=== PATIENT | male | born 1955 | race Caucasian/White ===

== ENCOUNTER 2020-07-09 18:59 | Inpatient (IN) | payer MEDICARE, OTHER ==
[2020-07-09] MEDS ORDERED: NORMAL SALINE 1000 ML 1,000 ML IV ONE (19:13)
[2020-07-09] MEDS ORDERED: ONDANSETRON HCL INJ/PF 4 MG/2 ML SDV IV ONE (19:16)
--- NOTE | 2020-07-09 19:18 | ER Document Report ---
ED Medical Screen (RME) - General Chief Complaint: Shortness Of Breath Stated Complaint: SHORTNESS OF BREATH Time Seen by Provider: 07/09/20 19:06 Primary Care Provider: TITA MIKE [Primary Care Provider] - Follow up as needed Notes: Patient is a 64-year-old male who presents the emergency department with a chief complaint of shortness of breath. Patient states that for the past couple weeks, he has not been feeling well. States that he has had on and off fevers. Patient was tested for COVID-19 yesterday. He was given Zofran. States that he continues to feel nauseous. Denies a history of atrial fibrillation. He did not take his medicine today, because he states he did not feel well. Exam: Sinus tachycardia with heart rate in the 130s. I have greeted and performed a rapid initial assessment of this patient. A comprehensive ED assessment and evaluation of the patient, analysis of test results and completion of medical decision making process will be conducted by an additional ED providers. TRAVEL OUTSIDE OF THE [place] IN LAST 30 DAYS: No - Related Data Allergies/Adverse Reactions: Penicillins Allergy (Verified 09/29/13 09:36) Past Medical History - Past Medical History Cardiac Medical History: Reports: Hx Coronary Artery Disease, Hx Hypertension Denies: Hx Heart Attack Pulmonary Medical History: Denies: Hx Asthma, Hx Bronchitis, Hx COPD, Hx Pneumonia Neurological Medical History: Denies: Hx Cerebrovascular Accident, Hx Seizures GI Medical History: Denies: Hx Hepatitis, Hx Hiatal Hernia, Hx Ulcer Musculoskeltal Medical History: Denies Hx Arthritis Infectious Medical History: Denies: Hx Hepatitis Past Surgical History: Denies: Hx Open Heart Surgery, Hx Pacemaker - Immunizations Hx Diphtheria, Pertussis, Tetanus Vaccination: Yes Course - Laboratory Result Diagrams: 07/09/20 14:02 07/09/20 14:02 Doctor's Discharge - Discharge Referrals: TITA MIKE [Primary Care Provider] - Follow up as needed
[2020-07-09 19:24] LABS: ABSOLUTE LYMPHOCYTES (AUTO) 0.8 10^3/uL (0.5-4.7); ABSOLUTE MONOCYTES (AUTO) 0.6 10^3/uL (0.1-1.4); ABSOLUTE NEUT (AUTO) 5.1 10^3/uL (1.7-8.2); BASOPHILS % (AUTO) 0.2 % (0-2); HEMATOCRIT 38.9 % (37.9-51.0); HEMOGLOBIN 13.6 g/dL (13.5-17.0); LYMPHOCYTES % (AUTO) 12.3 % (13-45); MEAN CORPUSCULAR HEMOGLOBIN 30.3 pg (27.0-33.4); MEAN CORPUSCULAR VOLUME 87 fl (80-97); MONOCYTES % (AUTO) 9.8 % (3-13); PLATELET COUNT 273 10^3/uL (150-450); RED BLOOD COUNT 4.48 10^6/uL (4.35-5.55); RED CELL DISTRIBUTION WIDTH 13.3 % (11.5-14.0); SEGMENTED NEUTROPHILS % (AUTO) 77.7 % (42-78); TOTAL CELLS COUNTED % (AUTO) 100 %; WHITE BLOOD COUNT 6.6 10^3/uL (4.0-10.5)
[2020-07-09 19:42] LABS: ALKALINE PHOSPHATASE 59 U/L (38-126); ANION GAP 19 (5-19); ASPARTATE AMINO TRANSFERASE 23 U/L (17-59); BILIRUBIN,DIRECT 0.4 mg/dL (0.0-0.4); BILIRUBIN,TOTAL 0.4 mg/dL (0.2-1.3); BLOOD UREA NITROGEN 72 mg/dL (7-20); CALCIUM 9.2 mg/dL (8.4-10.2); CHLORIDE 107 mmol/L (98-107); GLUCOSE 155 mg/dL (75-110); POTASSIUM 5.2 mmol/L (3.6-5.0); TOTAL PROTEIN 7.2 g/dL (6.3-8.2)
[2020-07-09 19:55] LABS: CARBON DIOXIDE 10 mmol/L (22-30)
--- NOTE | 2020-07-09 19:56 | RADIOLOGY REPORT (SQ) ---
EXAM DESCRIPTION: CHEST SINGLE VIEW IMAGES COMPLETED DATE/TIME: 07/09/2020 6:40 pm REASON FOR STUDY: shortness of breath, PUI. COMPARISON: None. EXAM PARAMETERS: NUMBER OF VIEWS: One view. TECHNIQUE: Single frontal radiographic view of the chest acquired. RADIATION DOSE: NA LIMITATIONS: None. FINDINGS: LUNGS AND PLEURA: Lungs are hyperinflated. Ill-defined patchy opacity in the left mid to lower lung peripherally may represent infectious/inflammatory process. No pleural effusion or pneumo thorax. MEDIASTINUM AND HILAR STRUCTURES: No masses. Contour normal. HEART AND VASCULAR STRUCTURES: Heart normal in size. Normal vasculature. BONES: No acute findings. HARDWARE: None in the chest. OTHER: No other significant finding. IMPRESSION: Peripheral ill-defined opacity in the left mid lung may represent infectious/ inflammato ry process. Underlying pulmonary nodule is not excluded. Further evaluation with contrast-enhanced CT of the chest is recommended. TECHNICAL DOCUMENTATION: JOB ID: [id number] [employer]- All Rights Reserved Reading location - IP/workstation name: [email or web address]
[2020-07-09] MEDS ORDERED: CEFEPIME INJ 1 GM VIAL IM ONE (20:32)
[2020-07-09] MEDS ORDERED: NORMAL SALINE IV ONE (20:35)
[2020-07-09 20:48] LABS: INTERNATIONAL RATION (INR) 1.08; PROTHROMBIN TIME 14.2 SEC (11.4-15.4)
[2020-07-09 20:53] LABS: A TYPE INFLUENZA AG NEGATIVE (NEGATIVE); B INFLUENZA AG NEGATIVE (NEGATIVE)
--- NOTE | 2020-07-09 21:11 | ER Document Report ---
ED General - General Chief Complaint: Shortness Of Breath Stated Complaint: SHORTNESS OF BREATH Time Seen by Provider: 07/09/20 19:06 Primary Care Provider: TITA MIKE [NO LOCAL MD] - Follow up as needed TRAVEL OUTSIDE OF THE [place] IN LAST 30 DAYS: No - HPI Onset/Duration: Constant Quality of pain: No pain Severity: Severe Pain Level: Denies Context: This is a 64-year-old male with a history of diabetes, hypertension, ex-smoker for 30 to 40 years who presents by EMS for shortness of breath and fever for the past 2 weeks. Patient states that he is not on home O2. Patient states that he has generally not felt well and decided to go through a drive-through testing center yesterday to be checked for Covid, results of which are pending at this time. Patient states his symptoms got significantly worse today and he decided to call EMS. When EMS arrived patient was complaining of nausea. He was given Zofran in route. Patient had a temp of 103.0 at home which he took Tylenol for at 1850 hrs. Patient's initial vital signs on scene: Temperature 98.5, blood pressure 110/62, pulse ox 96 to 98% on room air, heart rate 140 respiratory rate 20 and fingerstick blood sugars 147. Patient is not complaining of pain but states that his fatigue and shortness of breath are severe. Patient states symptoms are worsened with exacerbation and are very slightly relieved with r est. Patient states his has been sick at home with respiratory symptoms as well. Patient denies history of prior Covid infection, loss of sense of taste or smell, known exposure to Covid positive persons or persons under investigation for COVID-19. Associated symptoms: Other - See HPI Exacerbated by: Other - See HPI Relieved by: Other - See HPI - Related Data Allergies/Adverse Reactions: Penicillins Allergy (Verified 09/29/13 09:36) Home Medications: Potassium, metformin, atarvastatin, ASA, cardizem, chlorathalidone, lisinopril, omeprazole, zofran. Past Medical History - General Information source: Patient, Emergency Med Personnel - Social History Smoking Status: Former Smoker Drug Abuse: None Family History: Reviewed & Not Pertinent Patient has homicidal ideation: No - Past Medical History Cardiac Medical History: Reports: Hx Coronary Artery Disease, Hx Hypertension Denies: Hx Heart Attack Pulmonary Medical History: Denies: Hx Asthma, Hx Bronchitis, Hx COPD, Hx Pneumonia Neurological Medical History: Denies: Hx Cerebrovascular Accident, Hx Seizures GI Medical History: Denies: Hx Hepatitis, Hx Hiatal Hernia, Hx Ulcer Musculoskeletal Medical History: Denies Hx Arthritis Infectious Medical History: Denies: Hx Hepatitis Past Surgical History: Denies: Hx Open Heart Surgery, Hx Pacemaker - Immunizations Hx Diphtheria, Pertussis, Tetanus Vaccination: Yes Review of Systems - Review of Systems Constitutional: See HPI, Fever, Weakness EENT: No symptoms reported Cardiovascular: No symptoms reported Respiratory: Short of breath Gastrointestinal: No symptoms reported Genitourinary: No symptoms reported Male Genitourinary: No symptoms reported Musculoskeletal: No symptoms reported Skin: No symptoms reported Hematologic/Lymphatic: No symptoms reported Neurological/Psychological: No symptoms reported -: Yes All other systems reviewed and negative Physical Exam - Vital signs Vitals: Resp Pulse Ox 18 96 07/09/20 19:03 07/09/20 19:03 - Notes Notes: CONSTITUTIONAL [Vital signs reviewed, Patient appears fatigued but does not appear to be in acute distress, Alert and oriented X 3, Normal stature.] HEAD [Atraumatic, Normocephalic.] EYES [Eyes are normal to inspection, No discharge from eyes, Extraocular muscles intact, Sclera are normal, Conjunctiva are normal.] NECK [Normal ROM, No jugular venous distention, No meningeal signs, no carotid brui t.] RESPIRATORY CHEST [Chest is nontender, patient is noted to have crackles at his left base on lung exam , patient is somewhat tachypneic but is not in respiratory distress.] CARDIOVASCULAR Tachycardia, No murmurs, Normal S1 S2, No rub, No gallop.] ABDOMEN [Abdomen is nontender, No pulsatile masses, No other masses, Bowel sounds normal, No distension, No peritoneal signs, No hernias.] BACK [There is no CVA Tenderness, There is no tenderness to palpation, Normal inspection.] UPPER EXTREMITY [Inspection normal, No cyanosis, No clubbing, No edema, 2+ radial pulses.] LOWER EXTREMITY [Inspection normal, No cyanosis, No clubbing, No edema, No calf tenderness, 2+ femoral pulses.] NEURO [No focal motor deficits, No focal sensory deficits, Speech normal.] SKIN [Skin is cool, slightly moist, pallor is present.] PSYCHIATRIC [Normal affect. ] Course - Re-evaluation Re-evalutation: 07/09/20 23:53 Patient states he is feeling better at this time. Results of ED MSE discussed with patient. Recommendation for admission discussed with patient patient agreed to be admitted. All questions were answered. - Vital Signs Vital signs: Temp Pulse Resp BP Pulse Ox 98.3 F 137 H 30 H 123/77 100 07/09/20 22:18 07/09/20 19:10 07/09/20 23:01 07/09/20 23:01 07/09/20 23:01 - Laboratory Result Diagrams: 07/09/20 19:02 07/09/20 19:02 Laboratory results interpreted by me: 07/09/20 07/09/20 07/09/20 19:02 19:02 19:02 Lymph % (Auto) 12.3 L VBG pCO2 VBG HCO3 Sodium 135.9 L Potassium 5.2 H Carbon Dioxide 10 L* BUN 72 H Creatinine 3.37 H Est GFR ( Amer) 22 L Est GFR (MDRD) Non-Af 18 L Glucose 155 H Creatine Kinase 50 L Urine Protein 07/09/20 07/09/20 21:00 21:13 Lymph % (Auto) VBG pCO2 26.7 L VBG HCO3 14.0 L Sodium Potassium Carbon Dioxide BUN Creatinine Est GFR ( Amer) Est GFR (MDRD) Non-Af Glucose Creatine Kinase Urine Protein 100 H - Diagnostic Test Radiology reviewed: Reports reviewed - EKG Interpretation by Me Additional EKG results interpreted by me: 07/09/20 21:11 EKG obtained on 07/09/2020 at 1910 hrs. was interpreted by this MD. Findings: Sinus tachycardia, rate 130, normal axis, P waves proceed QRS complexes, VT interval appears to be within normal limits, QRS appears narrow, QTC is 400, there are no obvious patterns of ST segment elevation, depression or reciprocal changes present to suggest acute myocardial ischemia or infarction. No prior EKG is immediately available for comparison. Impression sinus tachycardia with nonspecific ST segments. 07/09/20 21:17 - Consults Dr. Sanabria Time consulted: 23:50 - Dr. Sanabria agreed to admit pt Reason for consultation: 07/09/20 23:54 pneumonia, hypotension, tachypnea Consulted provider: will see as inpatient Critical Care Note - Critical Care Note Total time excluding time spent on procedures (mins): 120 - pt presents hypotensive, tachycardic and tachypneic Discharge - Discharge Clinical Impression: Person under investigation for COVID-19, Dehydration, Acute renal insufficiency Pneumonia Qualifiers: Pneumonia type: due to unspecified organism Laterality: left Lung location: unspecified part of lung Qualified Code(s): J18.9 - Pneumonia, unspecified organism Condition: Stable Disposition: ADMITTED INPATIENT Admitting Provider: Daniele (Hospitalist) Unit Admitted: IMCU Referrals: LOCALMD,NO [NO LOCAL MD] - Follow up as needed
[2020-07-09 21:22] LABS: VENOUS BLOOD BASE EXCESS -10.5 mmol/L; VENOUS BLOOD PCO2 26.7 mmHg (35-63); VENOUS BLOOD PH 7.34 (7.30-7.42)
[2020-07-09 21:28] LABS: APPEARANCE,URINE SLIGHTLY-CLOUDY; BILIRUBIN,URINE NEGATIVE (NEGATIVE); COLOR,URINE YELLOW; GLUCOSE, URINE NEGATIVE (NEGATIVE); KETONES,URINE NEGATIVE (NEGATIVE); LEUKOCYTE ESTERASE,URINE NEGATIVE (NEGATIVE); NITRITE,URINE NEGATIVE (NEGATIVE); PROTEIN,URINE 100 mg/dL (NEGATIVE); URINE SPECIFIC GRAVITY 1.017; UROBILINOGEN,URINE NEGATIVE mg/dL (<2.0)
[2020-07-09] MEDS ORDERED: CEFEPIME 2 GM/D5W RTU 2 GM/50 ML RTUPB IV ONE (21:45)
--- NOTE | 2020-07-10 00:20 | EKG REPORT ---
SEVERITY:- OTHERWISE NORMAL ECG - SINUS TACHYCARDIA LOW VOLTAGE IN FRONTAL LEADS : Confirmed by: Jeane Guadarrama 10-Jul-2020 00:19:27
[2020-07-10] MEDS ORDERED: RINGERS SOLUTION,LACTATED 1,000 ML IV PRN (00:46)
[2020-07-10] MEDS ORDERED: MAGNESIUM HYDROXIDE SUSP 30 ML UDCUP PO PRN (00:46)
[2020-07-10] MEDS ORDERED: MAG HYDROX/AL HYDROX/SIMETH SUSP 30 ML UDCUP PO PRN (00:46)
[2020-07-10] MEDS ORDERED: DEXTROSE 50%-WATER 25 GM/50 ML DISP.SYRIN IV PRN ×2 (00:54)
[2020-07-10] MEDS ORDERED: GLUCAGON,HUMAN RECOMB 1 MG INJ IM PRN (00:54)
[2020-07-10] MEDS ORDERED: DEXTROSE 40% GEL 15 GM TUBE PO PRN ×2 (00:54)
[2020-07-10] MEDS ORDERED: GUAIFENESIN SYRP 200 MG/10 ML UDC PO PRN (00:55)
[2020-07-10] MEDS ORDERED: MELATONIN 5 MG TABLET PO PRN (00:56)
[2020-07-10] MEDS ORDERED: LORAZEPAM INJ 2 MG/1 ML VIAL IV PRN (00:56)
[2020-07-10] MEDS ORDERED: MORPHINE SULFATE 10 MG/ML INJ IV PRN (00:56)
[2020-07-10] MEDS ORDERED: ACETAMINOPHEN 325 MG TABLET PO PRN (00:56)
[2020-07-10] MEDS ORDERED: PROMETHAZINE HCL INJ 25 MG/1 ML VIAL IV PRN ×2 (00:56→15:00)
--- NOTE | 2020-07-10 04:41 | PDOC H&P ---
History of Present Illness Admission Date/PCP: 07/10/2020 00:14 AIDE PAZ MD Patient complains of: Dyspnea History of Present Illness: MAGALI YOUNGBLOOD JR is a 64 year old male who presented emergency room with a 2- week history of dyspnea. He admits the gradual onset and gradual worsening of dyspnea over the last 2 weeks, becoming severe over the last 24 hours. His dyspnea is present constantly and is worsened by exertion. His dyspnea has been accompanied by general malaise, fatigue and a nonproductive cough. His dyspnea has been associated with subjective fevers for the last few days and intermittent nausea. He denies other associated or accompanying signs and symptoms. He denies prior similar episodes. He admits having gone for a drive- through Covid test but he has not obtained results. He has not identified any additional aggravating or ameliorating factors for his dyspnea. In the emergency room he was found to have an acute kidney injury with a normal lactic acid and a probable left sided pneumonia on chest x-ray. He was transiently hypotensive and tachycardic but improved with IV fluids. He required supplemental oxygen at 2 L/min via nasal cannula to maintain an adequate oxygen saturation. He was subsequently admitted to the hospital for further evaluation and treatment as a person under investigation for COVID-19. Past Medical History Cardiac Medical History: Reports: Coronary Artery Disease, Hyperlipidema, Hypertension Denies: Atrial Fibrillation, Congestive Heart Failure, DVT, Myocardial Infarction Pulmonary Medical History: Denies: Asthma, Bronchitis, Chronic Obstructive Pulmonary Disease (COPD), Pneumonia EENT Medical History: Denies: Cataracts, Ears - Hearing aids Neurological Medical History: Denies: Hemorrhagic CVA, Ischemic CVA, Seizures Endocrine Medical History: Reports: Diabetes Mellitus Type 2 Denies: Diabetes Mellitus Type 1, Hyperthyroidism, Hypothyroidism Renal/ Medical History: Denies: Chronic Kidney Disease, Nephrolithiasis Malignancy Medical History: Reports: Skin Cancer GI Medical History: Reports: Gastroesophageal Reflux Disease, Other - West's esophagus Denies: Cirrhosis, Hepatitis, Peptic Ulcer Disease Musculoskeltal Medical History: Reports: Other - Chronic back pain Denies: Arthritis, Gout Skin Medical History: Denies: Eczema, Psoriasis Psychiatric Medical History: Denies: Alcohol Dependency, Substance Abuse, Tobacco Dependency Traumatic Medical History: Reports: None Hematology: Denies: Anemia, Bleeding Tendencies Infectious Medical History: Reports: None Past Surgical History Past Surgical History: Reports: Herniorrhaphy - Left inguinal herniorrhaphy, umbilical herniorrhaphy, Other - EGDs with biopsies, colonoscopies with biopsies, and skin cancer excisions Social History Information Source: Patient Lives with: Spouse/Significant other Smoking Status: Former Smoker Electronic Cigarette use?: No Frequency of Alcohol Use: Occasional Hx Recreational Drug Use: No Drugs: None Hx Prescription Drug Abuse: No - Advance Directive Resuscitation Status: Full Code Surrogate healthcare decision maker:: Joleen Shelby Family History Family History: DM, Hypertension, Malignancy Parental Family History Reviewed: Yes Children Family History Reviewed: No Sibling(s) Family History Reviewed.: Yes Medication/Allergy Home Medications: Aspirin [Ecotrin] 81 mg PO DAILY 09/29/13 Diltiazem HCl [Diltiazem ER] 240 mg PO DAILY 09/29/13 Lisinopril 30 mg PO DAILY 09/29/13 Niacin [Niaspan] 500 mg PO QHS 09/29/13 Keenes-3 Fatty Acids/Fish Oil [Fish Oil 1,000 mg Capsule] 1 each PO DAILY 09/29/13 Omeprazole [Prilosec] 1 tab PO DAILY 11/12/13 Atorvastatin Calcium 40 mg PO DAILY 12/18/15 Chlorthalidone [Chlorthalidone 25 mg Tablet] 1 tab PO DAILY 12/18/15 Metformin HCl 500 mg PO BID 12/18/15 Docusate Sodium [Colace 100 mg Capsule] 100 mg PO BID 12/22/15 Ibuprofen 800 mg PO 12/22/15 Oxycodone HCl/Acetaminophen [Percocet 5-325 mg Tablet] 1 - 2 tab PO .Q6HRS PRN 12/22/15 Allergies/Adverse Reactions: Penicillins Allergy (Verified 09/29/13 09:36) Review of Systems Constitutional: PRESENT: as per HPI, fatigue, fever(s), other - Malaise Eyes: ABSENT: visual disturbances, other - Eye pain Ears: ABSENT: hearing changes, other - Ear pain Nose, Mouth, and Throat: ABSENT: headache(s), sore throat Cardiovascular: PRESENT: as per HPI, dyspnea on exertion. ABSENT: chest pain, palpitations Respiratory: PRESENT: as per HPI, cough, dyspnea. ABSENT: hemoptysis, sputum Gastrointestinal: ABSENT: abdominal pain, constipation, diarrhea, nausea, vomiting Genitourinary: ABSENT: dysuria, hematuria Musculoskeletal: PRESENT: back pain - Chronic. ABSENT: joint swelling Integumentary: ABSENT: pruritus, rash Neurological: ABSENT: confusion, convulsions, focal weakness, memory loss, syncope Psychiatric: ABSENT: anxiety, depression Endocrine: ABSENT: cold intolerance, heat intolerance Hematologic/Lymphatic: ABSENT: easy bleeding, easy bruising Allergic/Immunologic: ABSENT: seasonal rhinorrhea Physical Exam Vital Signs: Temp Pulse Resp BP Pulse Ox 98.3 F 137 H 30 H 123/77 100 07/09/20 22:18 07/09/20 19:10 07/09/20 23:01 07/09/20 23:01 07/09/20 23:01 Intake & Output 07/08/20 07/09/20 07/10/20 23:59 23:59 23:59 Intake Total 1050 Balance 1050 Weight 85.275 kg General appearance: PRESENT: no acute distress, cooperative Head exam: PRESENT: atraumatic, normocephalic Eye exam: PRESENT: conjunctiva pink. ABSENT: conjunctival injection, scleral icterus Ear exam: PRESENT: normal external ear exam. ABSENT: bleeding, drainage Mouth exam: PRESENT: dry mucosa, neck supple Neck exam: ABSENT: thyromegaly, tracheal deviation Respiratory exam: PRESENT: clear to auscultation cheri, symmetrical, unlabored Cardiovascular exam: PRESENT: RRR. ABSENT: clicks, gallop, rubs Pulses: PRESENT: normal radial pulses, normal dorsalis pedis pul Vascular exam: PRESENT: normal capillary refill. ABSENT: pallor GI/Abdominal exam: PRESENT: normal bowel sounds, soft. ABSENT: tenderness Rectal exam: PRESENT: deferred Extremities exam: ABSENT: joint swelling, pedal edema Musculoskeletal exam: ABSENT: deformity, dislocation Neurological exam: PRESENT: alert, oriented to person, oriented to place, oriented to time, oriented to situation, CN II-XII grossly intact. ABSENT: motor sensory deficit Psychiatric exam: PRESENT: appropriate affect, normal mood Skin exam: PRESENT: dry, intact, warm. ABSENT: jaundice, rash, urticaria Results Laboratory Results: 07/09/20 19:02 07/09/20 19:02 07/09/20 07/09/20 07/09/20 19:02 19:02 21:00 WBC 6.6 RBC 4.48 Hgb 13.6 Hct 38.9 MCV 87 MCH 30.3 MCHC 35.0 RDW 13.3 Plt Count 273 Seg Neutrophils % 77.7 VBG pH VBG pCO2 VBG HCO3 VBG Base Excess Sodium 135.9 L Potassium 5.2 H Chloride 107 Carbon Dioxide 10 L* Anion Gap 19 BUN 72 H Creatinine 3.37 H Est GFR ( Amer) 22 L Glucose 155 H Lactic Acid 1.0 Calcium 9.2 Total Bilirubin 0.4 AST 23 Alkaline Phosphatase 59 Total Protein 7.2 Albumin 4.0 Urine Color Urine Appearance Urine pH Ur Specific Beals Urine Protein Urine Glucose (UA) Urine Ketones Urine Blood Urine Nitrite Ur Leukocyte Esterase Urine WBC (Auto) Urine RBC (Auto) 07/09/20 07/09/20 21:00 21:13 WBC RBC Hgb Hct MCV MCH MCHC RDW Plt Count Seg Neutrophils % VBG pH 7.34 VBG pCO2 26.7 L VBG HCO3 14.0 L VBG Base Excess -10.5 Sodium Potassium Chloride Carbon Dioxide Anion Gap BUN Creatinine Est GFR ( Amer) Glucose Lactic Acid Calcium Total Bilirubin AST Alkaline Phosphatase Total Protein Albumin Urine Color YELLOW Urine Appearance SLIGHTLY-CLOUDY Urine pH 5.0 Ur Specific Beals 1.017 Urine Protein 100 H Urine Glucose (UA) NEGATIVE Urine Ketones NEGATIVE Urine Blood NEGATIVE Urine Nitrite NEGATIVE Ur Leukocyte Esterase NEGATIVE Urine WBC (Auto) 5 Urine RBC (Auto) 0 07/09/20 19:02 Creatine Kinase 50 L Impressions: Chest X-Ray 07/09/20 19:04 IMPRESSION: Peripheral ill-defined opacity in the left mid lung may represent i nfectious/ inflammatory process. Underlying pulmonary nodule is not excluded. Further evaluation with contrast-enhanced CT of the chest is recommended. Assessment and Plan - Diagnosis (1) Community acquired pneumonia of left lung Qualifiers: Lung location: unspecified part of lung Qualified Code(s): J18.9 - Pneumonia, unspecified organism Is this a current diagnosis for this admission?: Yes (2) Acute respiratory failure with hypoxia Is this a current diagnosis for this admission?: Yes (3) Elevated serum creatinine Is this a current diagnosis for this admission?: Yes (4) Person under investigation for COVID-19 Is this a current diagnosis for this admission?: Yes (5) Diabetes mellitus type 2 in nonobese Is this a current diagnosis for this admission?: Yes (6) Essential hypertension Is this a current diagnosis for this admission?: Yes (7) Hyperlipidemia, unspecified Qualifiers: Hyperlipidemia type: unspecified Qualified Code(s): E78.5 - Hyperlipidemia, unspecified Is this a current diagnosis for this admission?: Yes (8) West's esophagus Qualifiers: West's esophagus type: with dysplasia of unspecified degree Qualified Code(s): K22.719 - West's esophagus with dysplasia, unspecified; K22.71 - West's esophagus with dysplasia Is this a current diagnosis for this admission?: Yes - Plan Summary Summary: Patient will be admitted to the [facility] where he received routine supportive and symptomatic cares. He will be treated with IV antibiotics utilizing Rocephin and a azithromycin. He will be started on dexamethasone 2 g IV every 8 hours. A nephrology consultation will be obtained when nephrology services are again available. He will receive supplemental oxygen via nasal cannula as needed for maintenance of adequate oxygen saturation level. He will receive IV fluids uti lizing lactated Ringer solution at 250 mL/h initially. He will receive Ativan 1 mg IV every 4 hours as needed for anxiety or restlessness. He will receive morphine sulfate 2 to 4 mg IV every 2 hours as needed for pain. Before meals and at bedtime Accu-Cheks will be obtained with sliding scale insulin used for hyperglycemia and a hypoglycemic protocol in place. Patient will be treated with a renal, cardiac and diabetic restricted diet. Additional laboratory and/or radiographic evaluations will be obtained as needed. - Time Time Spent with patient: Less than 15 minutes Medications reviewed and adjusted accordingly: Yes Anticipated Discharge Disposition: Home, Self Care Anticipated Discharge Timeframe: Undetermined - Inpatient Certification Based on my medical assessment, after consideration of the patient's comorbidities, presenting symptoms, or acuity I expect that the services needed warrant INPATIENT care.: Yes I certify that my determination is in accordance with my understanding of Medicare's requirements for reasonable and necessary INPATIENT services [42 CFR 412.3e].: Yes Medical Necessity: Need Close Monitoring Due to Risk of Patient Decompensation, Need For IV Fluids, Need For Continuous Telemetry Monitoring, Need for IV Antibiotics, Risk of Complication if Not Cared For in Hospital
[2020-07-10] MEDS ORDERED: AZITHROMYCIN INJ 500 MG VIAL IV ONE (04:42)
[2020-07-10] MEDS: AZITHROMYCIN 500 MG in DEXTROSE 5%-WATER 250 ML IV SCH ×2 (05:15→21:29)
[2020-07-10] MEDS ORDERED: DEXAMETHASONE SOD PHOS INJ 10 MG/1 ML VIAL IV SCH (06:00)
[2020-07-10] MEDS ORDERED: HEPARIN SOD (PORCINE) 5,000 UNIT/ML 1 ML VIAL SUBCUT SCH (06:00)
[2020-07-10] MEDS: INSULIN REG, HUMAN 100 UNIT/ML 3 ML VIAL (PYX) SUBCUT PRN ×3 (08:09→16:49)
[2020-07-10 09:59] LABS: ABSOLUTE LYMPHOCYTES (AUTO) 0.3 10^3/uL (0.5-4.7); ABSOLUTE MONOCYTES (AUTO) 0.2 10^3/uL (0.1-1.4); ABSOLUTE NEUT (AUTO) 4.3 10^3/uL (1.7-8.2); BASOPHILS % (AUTO) 0.2 % (0-2); EOSINOPHILS % (AUTO) 0.1 % (0-6); HEMATOCRIT 34.7 % (37.9-51.0); HEMOGLOBIN 11.9 g/dL (13.5-17.0); LYMPHOCYTES % (AUTO) 7.2 % (13-45); MEAN CORPUSCULAR HEMOGLOBIN 29.5 pg (27.0-33.4); MEAN CORPUSCULAR HGB CONC 34.4 g/dL (32.0-36.0); MEAN CORPUSCULAR VOLUME 86 fl (80-97); MONOCYTES % (AUTO) 4.9 % (3-13); PLATELET COUNT 255 10^3/uL (150-450); RED BLOOD COUNT 4.04 10^6/uL (4.35-5.55); RED CELL DISTRIBUTION WIDTH 13.4 % (11.5-14.0); SEGMENTED NEUTROPHILS % (AUTO) 87.6 % (42-78); TOTAL CELLS COUNTED % (AUTO) 100 %; WHITE BLOOD COUNT 4.9 10^3/uL (4.0-10.5)
[2020-07-10] MEDS ORDERED: ENOXAPARIN SODIUM INJ 40 MG/0.4 ML DISP.SYRIN SUBCUT SCH (10:00)
[2020-07-10] MEDS ORDERED: DOCUSATE SODIUM 100 MG CAPSULE PO SCH (10:00)
[2020-07-10] MEDS ORDERED: ENOXAPARIN SODIUM INJ 30 MG/0.3 ML DISP.SYRIN SUBCUT SCH (10:00)
[2020-07-10] MEDS: ZINC SULFATE 220 MG CAPSULE PO SCH (10:10)
[2020-07-10] MEDS: CEFTRIAXONE 1 GM/D5W RTU 1 GM/50 ML RTUPB IV SCH (10:10)
[2020-07-10] MEDS: CHOLECALCIFEROL (D3) 1,000 UNIT (25 MCG) TABLET PO SCH (10:10)
[2020-07-10] MEDS: FAMOTIDINE 20 MG TABLET PO SCH ×2 (10:10→21:29)
[2020-07-10] MEDS: ASCORBIC ACID 500 MG TABLET PO SCH ×2 (10:10→17:11)
[2020-07-10] MEDS: ASPIRIN 81 MG TABLET, ENT COATED PO SCH (10:10)
[2020-07-10] MEDS: DOCUSATE SODIUM 100 MG CAPSULE PO SCH ×2 (10:10→17:11)
[2020-07-10] MEDS: RINGERS SOLUTION,LACTATED 1,000 ML IV PRN ×2 (10:12→15:15)
[2020-07-10 10:30] LABS: ALBUMIN 3.6 g/dL (3.5-5.0); ALKALINE PHOSPHATASE 51 U/L (38-126); ANION GAP 14 (5-19); ASPARTATE AMINO TRANSFERASE 24 U/L (17-59); BILIRUBIN,DIRECT 0.3 mg/dL (0.0-0.4); BILIRUBIN,TOTAL 0.3 mg/dL (0.2-1.3); CALCIUM 8.7 mg/dL (8.4-10.2); CARBON DIOXIDE 13 mmol/L (22-30); CHLORIDE 109 mmol/L (98-107); GLUCOSE 155 mg/dL (75-110); POTASSIUM 5.1 mmol/L (3.6-5.0); TOTAL PROTEIN 6.4 g/dL (6.3-8.2)
[2020-07-10 11:57] LABS: BLOOD UREA NITROGEN 51 mg/dL (7-20)
--- NOTE | 2020-07-10 13:46 | RADIOLOGY REPORT (SQ) ---
EXAM DESCRIPTION: U/S RETROPERITON (RENAL/AORTA) IMAGES COMPLETED DATE/TIME: 07/10/2020 1:02 pm REASON FOR STUDY: BEATRIZ COMPARISON: None. TECHNIQUE: Dynamic and static grayscale images acquired of the kidneys and bladder and recorded on P ACS. Additional selected color Doppler and spectral images recorded. LIMITATIONS: None. FINDINGS: RIGHT KIDNEY: Normal size measuring 11.4 cm. Normal echogenicity. No solid or suspicious m asses. Mild fullness of the renal pelvis, likely extrarenal. No caliceal dilation. No calcificatio ns. LEFT KIDNEY: Normal size measuring 12.6 cm. Normal echogenicity. No solid or suspicious masses. Lo wer pole cyst measuring 4.8 cm. No hydronephrosis. No calcifications. BLADDER: No masses. OTHER FINDINGS: No other significant finding. IMPRESSION: 1. Minimal fullness of the right renal pelvis without caliceal dilation, likely seconda ry to extrarenal pelvis. 2. 4.8 cm left renal cyst. TECHNICAL DOCUMENTATION: JOB ID: [id number] 2010 [employer]- All Rights Reserved Reading location - IP/workstation name: [email or web address]
[2020-07-10] MEDS: DEXAMETHASONE SOD PHOS INJ 10 MG/1 ML VIAL IV SCH (15:16)
[2020-07-10] MEDS: NORMAL SALINE 1000 ML 1,000 ML IV PRN (18:45)
--- NOTE | 2020-07-10 21:39 | PDOC PROGRESS REPORT ---
Subjective Progress Note for:: 07/10/20 Subjective:: The patient was seen and examined at bedside. He is still on 2 L of nasal cannula for oxygen support however he reports that his breathing is already much better compared to when he came in. He denied any chest pain, palpitations, diarrhea, nausea or vomiting. He is afebrile appetite fair Reason For Visit: PNEUMONIA,PERSON UNDER INVESTIGATION FOR COVID 19, Physical Exam Vital Signs: Temp Pulse Resp BP Pulse Ox 97.5 F 83 22 H 136/72 H 97 07/10/20 16:17 07/10/20 16:17 07/10/20 16:17 07/10/20 16:17 07/10/20 16:17 Intake & Output 07/09/20 07/10/20 07/11/20 06:59 06:59 06:59 Intake Total 1700 3262 Output Total 300 200 Balance 1400 3062 Weight 87.8 kg General appearance: PRESENT: cooperative, mild distress Head exam: PRESENT: atraumatic, normocephalic Eye exam: PRESENT: EOMI, PERRLA Mouth exam: PRESENT: moist, neck supple Neck exam: PRESENT: full ROM Respiratory exam: PRESENT: crackles, rales, symmetrical Cardiovascular exam: PRESENT: RRR, +S1, +S2 Pulses: PRESENT: +2 pedal pulses bilateral GI/Abdominal exam: PRESENT: normal bowel sounds, soft. ABSENT: rebound, tenderness Extremities exam: PRESENT: full ROM Musculoskeletal exam: PRESENT: full ROM Neurological exam: PRESENT: alert, oriented to person, oriented to place, oriented to time, oriented to situation Psychiatric exam: PRESENT: normal mood Results Laboratory Results: 07/10/20 08:57 07/10/20 08:57 07/09/20 07/09/20 07/09/20 20:10 21:00 21:13 WBC RBC Hgb Hct MCV MCH MCHC RDW Plt Count Seg Neutrophils % Sodium Potassium Chloride Carbon Dioxide Anion Gap BUN Creatinine Est GFR ( Amer) Glucose Lactic Acid 1.0 Calcium Total Bilirubin AST Alkaline Phosphatase C-Reactive Protein 85.7 H Total Protein Albumin Urine Color YELLOW Urine Appearance SLIGHTLY-CLOUDY Urine pH 5.0 Ur Specific [place] 1.017 Urine Protein 100 H Urine Glucose (UA) NEGATIVE Urine Ketones NEGATIVE Urine Blood NEGATIVE Urine Nitrite NEGATIVE Ur Leukocyte Esterase NEGATIVE Urine WBC (Auto) 5 Urine RBC (Auto) 0 07/10/20 07/10/20 08:57 08:57 WBC 4.9 RBC 4.04 L Hgb 11.9 L Hct 34.7 L MCV 86 MCH 29.5 MCHC 34.4 RDW 13.4 Plt Count 255 Seg Neutrophils % 87.6 H Sodium 136.2 L Potassium 5.1 H Chloride 109 H Carbon Dioxide 13 L Anion Gap 14 BUN 51 H D Creatinine 1.88 H Est GFR ( Amer) 44 L Glucose 155 H Lactic Acid Calcium 8.7 Total Bilirubin 0.3 AST 24 Alkaline Phosphatase 51 C-Reactive Protein Total Protein 6.4 Albumin 3.6 Urine Color Urine Appearance Urine pH Ur Specific [place] Urine Protein Urine Glucose (UA) Urine Ketones Urine Blood Urine Nitrite Ur Leukocyte Esterase Urine WBC (Auto) Urine RBC (Auto) 07/09/20 19:02 Creatine Kinase 50 L Impressions: Chest X-Ray 07/09/20 19:04 IMPRESSION: Peripheral ill-defined opacity in the left mid lung may represent infectious/ inflammatory process. Underlying pulmonary nodule is not excluded. Further evaluation with contrast-enhanced CT of the chest is recommended. Renal Ultrasound 07/10/20 00:00 IMPRESSION: 1. Minimal fullness of the right renal pelvis without caliceal dilation, likely secondary to extrarenal pelvis. 2. 4.8 cm left renal cyst. Assessment and Plan - Diagnosis (1) Acute respiratory failure with hypoxia Is this a current diagnosis for this admission?: Yes Plan: -Admit due to dyspnea 2 weeks duration -Return down to 85% on 2 L of nasal cannula -[place] secondary to pneumonia Covid test pending -O2 Support as needed (2) Person under investigation for COVID-19 Is this a current diagnosis for this admission?: Yes Plan: -Has been having dyspnea for the past 2 weeks with subjective fevers and cough -Chest x-ray peripheral ill-defined opacity in the left midlung may represent infectious, inflammatory process. Underlying pulmonary nodule is not excluded. -Covid test pending -On dexamethasone 6 mg IV daily -Vitamin C, vitamin D, zinc -Empiric ceftriaxone and azithromycin -Remdesivir and convalescent plasma once Covid diagnosis is confirmed (3) Community acquired pneumonia of left lung Qualifiers: Lung location: unspecified part of lung Qualified Code(s): J18.9 - Pneumonia, unspecified organism Is this a current diagnosis for this admission?: Yes Plan: -As x-ray showed left midlung ill-defined opacity -CT chest pending without contrast -Empiric ceftriaxone and azithromycin for community-acquired pneumonia -Covid pending (4) BEATRIZ (acute kidney injury) Is this a current diagnosis for this admission?: Yes Plan: -Creatinine 3.8 down to 1.8 improved with IV fluids - unknown baseline - Fena 2.2 intrinsic renal - US renal minimal fullness of the right renal pelvis without calyceal dilatation likely secondary to extrarenal pelvis. 4.8 cm left renal cyst. -We will continue with IV hydration and monitor his creatinine in the morning. -Follow-up outpatient with nephro for 4.8 cm left renal cyst (5) West's esophagus Qualifiers: West's esophagus type: with dysplasia of unspecified degree Qualified Code(s): K22.719 - West's esophagus with dysplasia, unspecified; K22.71 - West's esophagus with dysplasia Is this a current diagnosis for this admission?: Yes Plan: Continue Protonix (6) Diabetes mellitus type 2 in nonobese Is this a current diagnosis for this admission?: Yes (7) Essential hypertension Is this a current diagnosis for this admission?: Yes Plan: Blood pressure 136/72 acceptable for now -He is on lisinopril and chlorthalidone for blood pressure, will hold for now due to BEATRIZ (8) Hyperlipidemia, unspecified Qualifiers: Hyperlipidemia type: unspecified Qualified Code(s): E78.5 - Hyperlipidemia, unspecified Is this a current diagnosis for this admission?: Yes Plan: Continue statin (9) Renal cyst Is this a current diagnosis for this admission?: Yes Plan: Note of 4.8 cm left renal cyst -We will need outpatient nephrology follow-up for assessment - Plan Summary Summary: . - Time Time Spent with patient: 25-34 minutes Anticipated Discharge Disposition: Home, Self Care Anticipated Discharge Timeframe: to be determined
[2020-07-11 05:17] LABS: ABSOLUTE LYMPHOCYTES (AUTO) 0.8 10^3/uL (0.5-4.7); ABSOLUTE MONOCYTES (AUTO) 0.4 10^3/uL (0.1-1.4); BASOPHILS % (AUTO) 0.5 % (0-2); EOSINOPHILS % (AUTO) 0.3 % (0-6); HEMOGLOBIN 11.8 g/dL (13.5-17.0); LYMPHOCYTES % (AUTO) 14.7 % (13-45); MEAN CORPUSCULAR HEMOGLOBIN 30.5 pg (27.0-33.4); MEAN CORPUSCULAR HGB CONC 35.7 g/dL (32.0-36.0); MEAN CORPUSCULAR VOLUME 85 fl (80-97); MONOCYTES % (AUTO) 8.1 % (3-13); PLATELET COUNT 266 10^3/uL (150-450); RED BLOOD COUNT 3.86 10^6/uL (4.35-5.55); RED CELL DISTRIBUTION WIDTH 13.3 % (11.5-14.0); SEGMENTED NEUTROPHILS % (AUTO) 76.4 % (42-78); TOTAL CELLS COUNTED % (AUTO) 100 %; WHITE BLOOD COUNT 5.3 10^3/uL (4.0-10.5)
[2020-07-11] MEDS: PANTOPRAZOLE SODIUM 40 MG TABLET.DR PO SCH (05:17)
[2020-07-11] MEDS: DEXAMETHASONE SOD PHOS INJ 10 MG/1 ML VIAL IV SCH (05:18)
[2020-07-11 05:39] LABS: ALBUMIN 3.2 g/dL (3.5-5.0); ALKALINE PHOSPHATASE 47 U/L (38-126); ANION GAP 15 (5-19); ASPARTATE AMINO TRANSFERASE 37 U/L (17-59); BILIRUBIN,DIRECT 0.3 mg/dL (0.0-0.4); BILIRUBIN,TOTAL 0.4 mg/dL (0.2-1.3); BLOOD UREA NITROGEN 33 mg/dL (7-20); CALCIUM 8.8 mg/dL (8.4-10.2); CARBON DIOXIDE 14 mmol/L (22-30); CHLORIDE 109 mmol/L (98-107); GLUCOSE 100 mg/dL (75-110); POTASSIUM 4.5 mmol/L (3.6-5.0); TOTAL PROTEIN 5.8 g/dL (6.3-8.2)
[2020-07-11] MEDS ORDERED: (PENDING PHARMACY ID) (Omeprazole [Prilosec] 40 MG) PO SCH (06:00)
[2020-07-11] MEDS: NORMAL SALINE 1000 ML 1,000 ML IV PRN ×2 (06:05→21:05)
[2020-07-11] MEDS ORDERED: INFLUENZA QUAD (6MOS+) 2020-21 VAC 0.5 ML SYR IM ONE (08:00)
[2020-07-11] MEDS ORDERED: NIACIN 500 MG PO SCH (10:00)
[2020-07-11] MEDS ORDERED: ASPIRIN 81 MG TABLET, ENT COATED PO SCH (10:00)
[2020-07-11] MEDS ORDERED: (PENDING PHARMACY ID) (Diltiazem Hcl [Diltiazem 24hr Er] 240 MG) PO SCH (10:00)
[2020-07-11] MEDS: DOCUSATE SODIUM 100 MG CAPSULE PO SCH ×2 (10:18→18:26)
[2020-07-11] MEDS: DILTIAZEM HCL 240 MG CAPSULE.CR PO SCH (10:22)
[2020-07-11] MEDS: ZINC SULFATE 220 MG CAPSULE PO SCH (10:22)
[2020-07-11] MEDS: FAMOTIDINE 20 MG TABLET PO SCH ×2 (10:22→21:55)
[2020-07-11] MEDS: CEFTRIAXONE 1 GM/D5W RTU 1 GM/50 ML RTUPB IV SCH (10:23)
[2020-07-11] MEDS: ASCORBIC ACID 500 MG TABLET PO SCH ×2 (10:23→18:26)
[2020-07-11] MEDS: ATORVASTATIN CALCIUM 40 MG TABLET PO SCH (10:23)
[2020-07-11] MEDS: CHOLECALCIFEROL (D3) 1,000 UNIT (25 MCG) TABLET PO SCH (10:23)
[2020-07-11] MEDS: ASPIRIN 81 MG TABLET, ENT COATED PO SCH (10:23)
--- NOTE | 2020-07-11 16:28 | PDOC PROGRESS REPORT ---
Subjective Progress Note for:: 07/11/20 Subjective:: Patient having some shortness of breath still. Denies any chest pain nausea vomiting. Informed by nurse that patient was just informed today via text that his outpatient COVID-19 test had come back positive. We are still awaiting our own test result. Also complaining of about 6 episodes of diarrhea daily. Reason For Visit: PNEUMONIA,PERSON UNDER INVESTIGATION FOR COVID 19, Physical Exam Vital Signs: Temp Pulse Resp BP Pulse Ox 98.6 F 87 19 91/46 L 95 07/11/20 10:00 07/11/20 14:00 07/11/20 07:53 07/11/20 07:53 07/11/20 07:53 Intake & Output 07/10/20 07/11/20 07/12/20 06:59 06:59 06:59 Intake Total 1700 5032 Output Total 300 200 Balance 1400 4832 Weight 87.8 kg 88.6 kg General appearance: PRESENT: no acute distress, cooperative Neck exam: ABSENT: JVD Respiratory exam: PRESENT: symmetrical, unlabored. ABSENT: tachypnea, wheezes Cardiovascular exam: PRESENT: RRR, +S1, +S2. ABSENT: tachycardia GI/Abdominal exam: PRESENT: soft. ABSENT: rebound, rigid, tenderness Extremities exam: ABSENT: pedal edema Neurological exam: PRESENT: alert, awake, oriented to person, oriented to place, oriented to time Psychiatric exam: ABSENT: agitated, anxious Results Laboratory Results: 07/11/20 04:29 07/11/20 04:29 07/11/20 07/11/20 04:29 04:29 WBC 5.3 RBC 3.86 L Hgb 11.8 L Hct 33.0 L MCV 85 MCH 30.5 MCHC 35.7 RDW 13.3 Plt Count 266 Seg Neutrophils % 76.4 Sodium 138.3 Potassium 4.5 Chloride 109 H Carbon Dioxide 14 L Anion Gap 15 BUN 33 H Creatinine 1.27 H Est GFR ( Amer) > 60 Glucose 100 Calcium 8.8 Total Bilirubin 0.4 AST 37 Alkaline Phosphatase 47 Total Protein 5.8 L Albumin 3.2 L 07/09/20 20:10 Throat Throat Culture - Final NORMAL RUTH ANN 07/09/20 19:02 Creatine Kinase 50 L Impressions: Chest X-Ray 07/09/20 19:04 IMPRESSION: Peripheral ill-defined opacity in the left mid lung may represent infectious/ inflammatory process. Underlying pulmonary nodule is not excluded. Further evaluation with contrast-enhanced CT of the chest is recommended. Renal Ultrasound 07/10/20 00:00 IMPRESSION: 1. Minimal fullness of the right renal pelvis without caliceal dilation, likely secondary to extrarenal pelvis. 2. 4.8 cm left renal cyst. Assessment and Plan - Diagnosis (1) Acute respiratory failure with hypoxia Is this a current diagnosis for this admission?: Yes Plan: Likely secondary to pneumonia. COVID-19 test pending. Oxygen supplementation. On 2 L nasal cannula this morning. (2) Pneumonia due to COVID-19 virus Is this a current diagnosis for this admission?: Yes Plan: Chest x-ray shows suspicion for bilateral pneumonia. Will confirm with CT chest. D-dimer also notably elevated. Continue IV antibiotics for now until COVID-19 test results Continue dexamethasone Patient was notified by his outpatient testing center that his COVID-19 test had come back positive We will plan to initiate remdesivir and convalescent plasma once we get our test results back Continue vitamin and zinc supplements (3) BEATRIZ (acute kidney injury) Is this a current diagnosis for this admission?: Yes Plan: Suspect secondary to dehydration from anorexia/diarrhea from infection. Responds nicely to fluid Continue gentle IV hydration and monitor renal function (4) Diarrhea Qualifiers: Diarrhea type: infectious Qualified Code(s): A09 - Infectious gastroenteritis and colitis, unspecified Is this a current diagnosis for this admission?: Yes Plan: Has had 6 episodes over the past 24 hours. Suspect secondary to COVID-19 infection. Will test to rule out C. difficile. (5) West's esophagus Qualifiers: West's esophagus type: with dysplasia of unspecified degree Qualified Code(s): K22.719 - West's esophagus with dysplasia, unspecified; K22.71 - West's esophagus with dysplasia Is this a current diagnosis for this admission?: Yes Plan: Continue Protonix (6) Diabetes mellitus type 2 in nonobese Is this a current diagnosis for this admission?: Yes (7) Essential hypertension Is this a current diagnosis for this admission?: Yes (8) Hyperlipidemia, unspecified Qualifiers: Hyperlipidemia type: unspecified Qualified Code(s): E78.5 - Hyperlipidemia, unspecified Is this a current diagnosis for this admission?: Yes (9) Renal cyst Is this a current diagnosis for this admission?: Yes - Time Time Spent with patient: 15-24 minutes Anticipated Discharge Disposition: Home, Self Care Anticipated Discharge Timeframe: within 72 hours
[2020-07-11] MEDS: ENOXAPARIN SODIUM INJ 100 MG/1 ML DISP.SYRIN SUBCUT SCH (18:26)
[2020-07-11] MEDS: AZITHROMYCIN 500 MG in DEXTROSE 5%-WATER 250 ML IV SCH (21:54)
[2020-07-11] MEDS ORDERED: REMDESIVIR (EUA) 200 MG in NORMAL SALINE 250 ML IV ONE (22:00)
--- NOTE | 2020-07-11 22:41 | RADIOLOGY REPORT (SQ) ---
CT ANGIOGRAM CHEST WITH IV CONTRAST: 07/11/2020 9:37 PM CDT HISTORY: 34-year old patient with elevated d-dimer, concern for pulmonary embolism, dyspnea, COVID infection. TECHNIQUE: Postcontrast CT through the chest was performed per protocol for CT angiography. 3D Multiplanar reformations were performed at the workstation. Reconstructed sagittal and coronal images were also obtained through the chest. This exam was performed according to our departmental dose-optimization program, which includes automated exposure control, adjustment of the mA and/or KV according to the patient's size and/or use of iterative reconstruction technique. COMPARISON: None available FINDINGS: The heart size is enlarged. No large pericardial effusion is seen. Coronary artery calcifications are seen. No significant mediastinal, supraclavicular, or axillary lymphadenopathy is seen. The thoracic aorta is enlarged and measures at least 4.2 cm in transverse dimension. No filling defects are seen within the pulmonary arteries to suggest a pulmonary artery embolism. The main pulmonary artery is enlarged and measures at least 3.5 cm in transverse dimension. The thyroid gland is unremarkable. The central tracheobronchial tree is patent. There are peripheral groundglass airspace opacities concerning for COVID infection. Mild centrilobular emphysematous changes are present. No discrete pleural effusion is seen. There is no evidence of a pneumothorax. The bones demonstrate no suspicious lytic or blastic lesion. The visualized portions of the upper abdomen appear grossly unremarkable. IMPRESSION: There are peripheral groundglass airspace opacities concerning for COVID infection.. No filling defect is seen to suggest a pulmonary artery embolism. The ascending aorta is enlarged. The main pulmonary artery is enlarged, which can be seen with pulmonary artery hypertension.
[2020-07-12 05:29] LABS: HEMATOCRIT 34.8 % (37.9-51.0); HEMOGLOBIN 12.1 g/dL (13.5-17.0); MEAN CORPUSCULAR HEMOGLOBIN 29.9 pg (27.0-33.4); MEAN CORPUSCULAR HGB CONC 34.8 g/dL (32.0-36.0); MEAN CORPUSCULAR VOLUME 86 fl (80-97); PLATELET COUNT 298 10^3/uL (150-450); RED BLOOD COUNT 4.06 10^6/uL (4.35-5.55); RED CELL DISTRIBUTION WIDTH 13.6 % (11.5-14.0); WHITE BLOOD COUNT 5.9 10^3/uL (4.0-10.5)
[2020-07-12] MEDS: DEXAMETHASONE SOD PHOS INJ 10 MG/1 ML VIAL IV SCH (05:35)
[2020-07-12] MEDS: ENOXAPARIN SODIUM INJ 100 MG/1 ML DISP.SYRIN SUBCUT SCH ×2 (05:35→17:13)
[2020-07-12] MEDS: PANTOPRAZOLE SODIUM 40 MG TABLET.DR PO SCH (05:36)
[2020-07-12 06:02] LABS: ANION GAP 13 (5-19); BLOOD UREA NITROGEN 29 mg/dL (7-20); CALCIUM 8.4 mg/dL (8.4-10.2); CARBON DIOXIDE 14 mmol/L (22-30); CHLORIDE 112 mmol/L (98-107); GLUCOSE 107 mg/dL (75-110); PHOSPHORUS 2.9 mg/dL (2.5-4.5); POTASSIUM 4.3 mmol/L (3.6-5.0)
[2020-07-12] MEDS ORDERED: MAGNESIUM SULFATE INJ 8 MEQ/2 ML IV ONE (06:27)
[2020-07-12] MEDS: NORMAL SALINE 1000 ML 1,000 ML IV PRN (06:54)
[2020-07-12] MEDS ORDERED: NORMAL SALINE 1000 ML 1,000 ML IV PRN (07:33)
[2020-07-12] MEDS ORDERED: MAGNESIUM SULFATE/D5W 1 GM/100 ML RTUPB IV ONE (07:45)
[2020-07-12] MEDS: MAGNESIUM SULFATE/D5W 1 GM/100 ML RTUPB IV SCH ×3 (08:13→11:51)
[2020-07-12 09:52] LABS: C DIFFICILE GDH POSITIVE (NEGATIVE)
[2020-07-12] MEDS: ASPIRIN 81 MG TABLET, ENT COATED PO SCH (09:56)
[2020-07-12] MEDS: FAMOTIDINE 20 MG TABLET PO SCH ×2 (09:56→21:32)
[2020-07-12] MEDS: ASCORBIC ACID 500 MG TABLET PO SCH ×2 (09:56→17:13)
[2020-07-12] MEDS: ATORVASTATIN CALCIUM 40 MG TABLET PO SCH (09:56)
[2020-07-12] MEDS: DOCUSATE SODIUM 100 MG CAPSULE PO SCH ×2 (09:57→17:13)
[2020-07-12] MEDS: DILTIAZEM HCL 240 MG CAPSULE.CR PO SCH (09:57)
[2020-07-12] MEDS: ZINC SULFATE 220 MG CAPSULE PO SCH (09:57)
[2020-07-12] MEDS: CHOLECALCIFEROL (D3) 1,000 UNIT (25 MCG) TABLET PO SCH (09:57)
--- NOTE | 2020-07-12 11:22 | PDOC PROGRESS REPORT ---
Subjective Progress Note for:: 07/12/20 Subjective:: Patient states that he felt very fatigued last night. Otherwise, his shortness of breath is not any worse than before. He denies any chest pain. Complains of malaise as well. Reason For Visit: PNEUMONIA,PERSON UNDER INVESTIGATION FOR COVID 19, Physical Exam Vital Signs: Temp Pulse Resp BP Pulse Ox 98.1 F 109 H 24 H 114/70 94 07/12/20 08:06 07/12/20 07:46 07/12/20 07:46 07/12/20 07:46 07/12/20 07:46 Intake & Output 07/11/20 07/12/20 07/13/20 06:59 06:59 06:59 Intake Total 5032 4329 100 Output Total 200 Balance 4832 4329 100 Weight 88.6 kg 88.6 kg General appearance: PRESENT: no acute distress, cooperative Neck exam: ABSENT: JVD Respiratory exam: PRESENT: crackles, symmetrical, unlabored. ABSENT: tachypnea, wheezes Cardiovascular exam: PRESENT: RRR, +S1, +S2. ABSENT: tachycardia GI/Abdominal exam: PRESENT: soft. ABSENT: rebound, rigid, tenderness Musculoskeletal exam: PRESENT: ambulatory Neurological exam: PRESENT: alert, awake, oriented to person, oriented to place, oriented to time, oriented to situation Results Laboratory Results: 07/12/20 04:29 07/12/20 04:29 07/12/20 07/12/20 04:29 04:29 WBC 5.9 RBC 4.06 L Hgb 12.1 L Hct 34.8 L MCV 86 MCH 29.9 MCHC 34.8 RDW 13.6 Plt Count 298 Sodium 139.1 Potassium 4.3 Chloride 112 H Carbon Dioxide 14 L Anion Gap 13 BUN 29 H Creatinine 1.24 Est GFR ( Amer) > 60 Glucose 107 Calcium 8.4 Phosphorus 2.9 Magnesium 1.0 L* 07/09/20 20:10 Throat Throat Culture - Final NORMAL RUTH ANN 07/09/20 19:02 Creatine Kinase 50 L Impressions: Chest X-Ray 07/09/20 19:04 IMPRESSION: Peripheral ill-defined opacity in the left mid lung may represent infectious/ inflammatory process. Underlying pulmonary nodule is not excluded. Further evaluation with contrast-enhanced CT of the chest is recommended. Renal Ultrasound 07/10/20 00:00 IMPRESSION: 1. Minimal fullness of the right renal pelvis without caliceal dilation, likely secondary to extrarenal pelvis. 2. 4.8 cm left renal cyst. Chest/Abdomen CTA 07/11/20 00:00 IMPRESSION: There are peripheral groundglass airspace opacities concerning for COVID infection.. No filling defect is seen to suggest a pulmonary artery embolism. The ascending aorta is enlarged. The main pulmonary artery is enlarged, which can be seen with pulmonary artery hypertension. Assessment and Plan - Diagnosis (1) Acute respiratory failure with hypoxia Is this a current diagnosis for this admission?: Yes Plan: Secondary to COVID-19 pneumonia Oxygen supplementation. On 2 L nasal cannula this morning. We will try to wean as tolerated. (2) Pneumonia due to COVID-19 virus Is this a current diagnosis for this admission?: Yes Plan: CTA chest showing bilateral pneumonia but no PE. Received 3 days of azithromycin. We will go ahead and discontinue. Dexamethasone day 3 Remdesivir day 2 Administer convalescent plasma today Continue vitamin and zinc supplements Continue therapeutic Lovenox and check D-dimer in the morning (3) BEATRIZ (acute kidney injury) Is this a current diagnosis for this admission?: Yes Plan: Suspect secondary to dehydration from anorexia/diarrhea from infection. Responds nicely to fluid Continue gentle IV hydration and monitor renal function (4) Diarrhea Qualifiers: Diarrhea type: infectious Qualified Code(s): A09 - Infectious gastroenteritis and colitis, unspecified Is this a current diagnosis for this admission?: Yes Plan: Slowed down to 2 episodes over the past 24 hours. Suspect secondary to COVID-19 infection. C. difficile test is negative. (5) West's esophagus Qualifiers: West's esophagus type: with dysplasia of unspecified degree Qualified Code(s): K22.719 - West's esophagus with dysplasia, unspecified; K22.71 - West's esophagus with dysplasia Is this a current diagnosis for this admission?: Yes Plan: Continue Protonix (6) Diabetes mellitus type 2 in nonobese Is this a current diagnosis for this admission?: Yes (7) Essential hypertension Is this a current diagnosis for this admission?: Yes (8) Hyperlipidemia, unspecified Qualifiers: Hyperlipidemia type: unspecified Qualified Code(s): E78.5 - Hyperlipidemia, unspecified Is this a current diagnosis for this admission?: Yes (9) Renal cyst Is this a current diagnosis for this admission?: Yes - Time Time Spent with patient: 15-24 minutes Anticipated Discharge Disposition: Home, Self Care Anticipated Discharge Timeframe: within 48 hours
[2020-07-12 12:08] LABS: APPEARANCE,URINE CLEAR; BILIRUBIN,URINE NEGATIVE (NEGATIVE); COLOR,URINE YELLOW; GLUCOSE, URINE >=500 mg/dL (NEGATIVE); KETONES,URINE NEGATIVE (NEGATIVE); LEUKOCYTE ESTERASE,URINE NEGATIVE (NEGATIVE); NITRITE,URINE NEGATIVE (NEGATIVE); PROTEIN,URINE NEGATIVE (NEGATIVE); URINE SPECIFIC GRAVITY 1.016; UROBILINOGEN,URINE NEGATIVE mg/dL (<2.0)
[2020-07-12] MEDS: INSULIN REG, HUMAN 100 UNIT/ML 3 ML VIAL (PYX) SUBCUT PRN (12:21)
[2020-07-12] MEDS: REMDESIVIR (EUA) 100 MG in NORMAL SALINE 250 ML IV SCH (21:32)
[2020-07-13] MEDS: DEXAMETHASONE SOD PHOS INJ 10 MG/1 ML VIAL IV SCH (05:51)
[2020-07-13] MEDS: PANTOPRAZOLE SODIUM 40 MG TABLET.DR PO SCH (05:51)
[2020-07-13] MEDS: ENOXAPARIN SODIUM INJ 100 MG/1 ML DISP.SYRIN SUBCUT SCH (05:51)
[2020-07-13 06:04] LABS: ANION GAP 12 (5-19); BLOOD UREA NITROGEN 29 mg/dL (7-20); CALCIUM 8.6 mg/dL (8.4-10.2); CARBON DIOXIDE 15 mmol/L (22-30); CHLORIDE 110 mmol/L (98-107); GLUCOSE 134 mg/dL (75-110); PHOSPHORUS 3.4 mg/dL (2.5-4.5); POTASSIUM 4.3 mmol/L (3.6-5.0)
[2020-07-13] MEDS: ATORVASTATIN CALCIUM 40 MG TABLET PO SCH (09:28)
[2020-07-13] MEDS: DOCUSATE SODIUM 100 MG CAPSULE PO SCH ×2 (09:29→17:01)
[2020-07-13] MEDS: ASPIRIN 81 MG TABLET, ENT COATED PO SCH (09:29)
[2020-07-13] MEDS: CHOLECALCIFEROL (D3) 1,000 UNIT (25 MCG) TABLET PO SCH (09:29)
[2020-07-13] MEDS: ASCORBIC ACID 500 MG TABLET PO SCH ×2 (09:29→17:01)
[2020-07-13] MEDS: DILTIAZEM HCL 240 MG CAPSULE.CR PO SCH (09:29)
[2020-07-13] MEDS: FAMOTIDINE 20 MG TABLET PO SCH ×2 (09:29→22:57)
[2020-07-13] MEDS: ZINC SULFATE 220 MG CAPSULE PO SCH (09:29)
--- NOTE | 2020-07-13 11:56 | PDOC PROGRESS REPORT ---
Subjective Progress Note for:: 07/13/20 Subjective:: Patient is doing quite well today. His breathing is a lot better. He has been able to ambulate comfortably. He spent most of yesterday without any oxygen on room air. Currently on room air today. Denies any chest pain. Still having mild diarrhea. Reason For Visit: PNEUMONIA,PERSON UNDER INVESTIGATION FOR COVID 19, Physical Exam Vital Signs: Temp Pulse Resp BP Pulse Ox 98.1 F 96 22 H 122/72 91 L 07/13/20 07:37 07/13/20 07:00 07/13/20 03:48 07/13/20 03:48 07/13/20 03:48 Intake & Output 07/12/20 07/13/20 07/14/20 06:59 06:59 06:59 Intake Total 4329 2459 976 Output Total 0 Balance 4329 2459 976 Weight 88.6 kg 87 kg General appearance: PRESENT: no acute distress, cooperative Neck exam: ABSENT: JVD Respiratory exam: PRESENT: crackles, symmetrical, unlabored. ABSENT: tachypnea, wheezes Cardiovascular exam: PRESENT: RRR, +S1, +S2. ABSENT: tachycardia GI/Abdominal exam: PRESENT: soft. ABSENT: rebound, rigid, tenderness Neurological exam: PRESENT: alert, awake, oriented to person, oriented to place, oriented to time Psychiatric exam: ABSENT: agitated, anxious Results Laboratory Results: 07/12/20 04:29 07/13/20 04:53 07/12/20 07/12/20 07/13/20 11:50 11:55 04:53 Sodium 137.3 Potassium 4.3 Chloride 110 H Carbon Dioxide 15 L Anion Gap 12 BUN 29 H Creatinine 1.06 Est GFR ( Amer) > 60 Glucose 134 H Calcium 8.6 Phosphorus 3.4 Magnesium 1.6 Urine Color YELLOW Urine Appearance CLEAR Urine pH 5.0 Ur Specific [place] 1.016 Urine Protein NEGATIVE Urine Glucose (UA) >=500 H Urine Ketones NEGATIVE Urine Blood NEGATIVE Urine Nitrite NEGATIVE Ur Leukocyte Esterase NEGATIVE Urine WBC (Auto) 1 Urine RBC (Auto) 0 Blood Type O POSITIVE Antibody Screen NEGATIVE 07/09/20 19:02 Creatine Kinase 50 L Impressions: Chest X-Ray 07/09/20 19:04 IMPRESSION: Peripheral ill-defined opacity in the left mid lung may represent infectious/ inflammatory process. Underlying pulmonary nodule is not excluded. Further evaluation with contrast-enhanced CT of the chest is recommended. Renal Ultrasound 07/10/20 00:00 IMPRESSION: 1. Minimal fullness of the right renal pelvis without caliceal dilation, likely secondary to extrarenal pelvis. 2. 4.8 cm left renal cyst. Chest/Abdomen CTA 07/11/20 00:00 IMPRESSION: There are peripheral groundglass airspace opacities concerning for COVID infection.. No filling defect is seen to suggest a pulmonary artery embolism. The ascending aorta is enlarged. The main pulmonary artery is enlarged, which can be seen with pulmonary artery hypertension. Assessment and Plan - Diagnosis (1) Acute respiratory failure with hypoxia Is this a current diagnosis for this admission?: Yes Plan: Secondary to COVID-19 pneumonia Seems to be resolving at this point as he was on room air from noon yesterday and currently still on room air. We will check an ambulatory pulse ox today. If he maintains on room air today, we will discharge patient tomorrow. (2) Pneumonia due to COVID-19 virus Is this a current diagnosis for this admission?: Yes Plan: CTA chest showing bilateral pneumonia but no PE. Received 3 days of azithromycin. We will go ahead and discontinue. Dexamethasone day 4 Remdesivir day 3 The convalescent plasma was delayed yesterday so he will be receiving it today. Continue vitamin and zinc supplements D-dimer is now less than 1 so we will discontinue the therapeutic Lovenox. (3) BEATRIZ (acute kidney injury) Is this a current diagnosis for this admission?: Yes Plan: Suspect secondary to dehydration from anorexia/diarrhea from infection. Resolved with IV fluids. Will discontinue IV fluids at this point and encourage p.o. hydration. (4) Diarrhea Qualifiers: Diarrhea type: infectious Qualified Code(s): A09 - Infectious gastroenteritis and colitis, unspecified Is this a current diagnosis for this admission?: Yes Plan: Suspect secondary to COVID-19 infection. C. difficile test is negative. (5) West's esophagus Qualifiers: West's esophagus type: with dysplasia of unspecified degree Qualified Code(s): K22.719 - West's esophagus with dysplasia, unspecified; K22.71 - West's esophagus with dysplasia Is this a current diagnosis for this admission?: Yes Plan: Continue Protonix (6) Diabetes mellitus type 2 in nonobese Is this a current diagnosis for this admission?: Yes (7) Essential hypertension Is this a current diagnosis for this admission?: Yes (8) Hyperlipidemia, unspecified Qualifiers: Hyperlipidemia type: unspecified Qualified Code(s): E78.5 - Hyperlipidemia, unspecified Is this a current diagnosis for this admission?: Yes (9) Renal cyst Is this a current diagnosis for this admission?: Yes Plan: Note of 4.8 cm left renal cyst will need outpatient nephrology follow-up for assessment - Time Time Spent with patient: 15-24 minutes Anticipated Discharge Disposition: Home, Self Care Anticipated Discharge Timeframe: within 24 hours
[2020-07-13] MEDS: INSULIN REG, HUMAN 100 UNIT/ML 3 ML VIAL (PYX) SUBCUT SCH ×2 (12:37→16:36)
[2020-07-13] MEDS: REMDESIVIR (EUA) 100 MG in NORMAL SALINE 250 ML IV SCH (22:57)
[2020-07-14] MEDS: INSULIN REG, HUMAN 100 UNIT/ML 3 ML VIAL (PYX) SUBCUT SCH ×2 (01:12→09:07)
[2020-07-14] MEDS: DEXAMETHASONE SOD PHOS INJ 10 MG/1 ML VIAL IV SCH (05:24)
[2020-07-14] MEDS: PANTOPRAZOLE SODIUM 40 MG TABLET.DR PO SCH (05:24)
[2020-07-14 06:00] LABS: HEMATOCRIT 31.8 % (37.9-51.0); HEMOGLOBIN 11.1 g/dL (13.5-17.0); MEAN CORPUSCULAR HEMOGLOBIN 29.8 pg (27.0-33.4); MEAN CORPUSCULAR HGB CONC 34.9 g/dL (32.0-36.0); MEAN CORPUSCULAR VOLUME 85 fl (80-97); PLATELET COUNT 355 10^3/uL (150-450); RED BLOOD COUNT 3.73 10^6/uL (4.35-5.55); RED CELL DISTRIBUTION WIDTH 13.5 % (11.5-14.0); WHITE BLOOD COUNT 5.3 10^3/uL (4.0-10.5)
[2020-07-14 06:18] LABS: ANION GAP 12 (5-19); BLOOD UREA NITROGEN 33 mg/dL (7-20); CARBON DIOXIDE 17 mmol/L (22-30); CHLORIDE 110 mmol/L (98-107); GLUCOSE 149 mg/dL (75-110); POTASSIUM 4.4 mmol/L (3.6-5.0)
[2020-07-14] MEDS ORDERED: ENOXAPARIN SODIUM INJ 100 MG/1 ML DISP.SYRIN SUBCUT SCH (10:00)
[2020-07-14] MEDS ORDERED: ENOXAPARIN SODIUM INJ 40 MG/0.4 ML DISP.SYRIN SUBCUT SCH (10:00)
[2020-07-14] MEDS: DILTIAZEM HCL 240 MG CAPSULE.CR PO SCH (10:08)
[2020-07-14] MEDS: CHOLECALCIFEROL (D3) 1,000 UNIT (25 MCG) TABLET PO SCH (10:09)
[2020-07-14] MEDS: ZINC SULFATE 220 MG CAPSULE PO SCH (10:09)
[2020-07-14] MEDS: ASPIRIN 81 MG TABLET, ENT COATED PO SCH (10:09)
[2020-07-14] MEDS: ASCORBIC ACID 500 MG TABLET PO SCH (10:09)
[2020-07-14] MEDS: FAMOTIDINE 20 MG TABLET PO SCH (10:09)
[2020-07-14] MEDS: DOCUSATE SODIUM 100 MG CAPSULE PO SCH (10:09)
[2020-07-14] MEDS: ATORVASTATIN CALCIUM 40 MG TABLET PO SCH (10:09)
--- NOTE | 2020-07-14 10:55 | PDOC DISCHARGE SUMMARY ---
Impression - Admit/DC Date/PCP Admission Date/Primary Care Provider: 07/10/20 00:18 AIDE PAZ MD Discharge Date: 07/14/20 - Discharge Diagnosis (1) Acute respiratory failure with hypoxia Is this a current diagnosis for this admission?: Yes (2) Pneumonia due to COVID-19 virus Is this a current diagnosis for this admission?: Yes (3) BEATRIZ (acute kidney injury) Is this a current diagnosis for this admission?: Yes (4) Diarrhea Is this a current diagnosis for this admission?: Yes (5) West's esophagus Is this a current diagnosis for this admission?: Yes (6) Diabetes mellitus type 2 in nonobese Is this a current diagnosis for this admission?: Yes (7) Essential hypertension Is this a current diagnosis for this admission?: Yes (8) Hyperlipidemia, unspecified Is this a current diagnosis for this admission?: Yes (9) Renal cyst Is this a current diagnosis for this admission?: Yes - Additional Information Resuscitation Status: Full Code Discharge Diet: As Tolerated Discharge Activity: Slowly Increase Activity Referrals: AIDE PAZ MD [Primary Care Provider] - Prescriptions: RX: Magnesium Oxide [Mag-Ox 400 mg Tablet] 400 mg PO DAILY #10 tablet RX: Albuterol Sulfate [Proair Respiclick] 2 inh IH Q6HP PRN #1 inhaler PRN Reason: Ascorbic Acid [Vitamin C] 2,000 mg PO DAILY #30 tablet.er Cholecalciferol (Vitamin D3) [Vitamin D3 1000 Unit Tablet] 2,000 unit PO DAILY 10 Days #20 tablet RX: Zinc Sulfate [Zinc-220 Capsule] 220 mg PO DAILY #20 capsule Home Medications: RX: Aspirin [Ecotrin] 81 mg PO DAILY 09/29/13 RX: Diltiazem HCl [Diltiazem 24Hr ER] 240 mg PO DAILY 09/29/13 RX: Lisinopril 30 mg PO DAILY 09/29/13 RX: Niacin [Niaspan] 500 mg PO DAILY 09/29/13 RX: Omeprazole [Prilosec] 40 mg PO Q6AM 11/12/13 Chlorthalidone [Chlorthalidone 25 mg Tablet] 25 mg PO DAILY 12/18/15 RX: Atorvastatin Calcium 40 mg PO DAILY 12/18/15 RX: Metformin HCl 1,000 mg PO BID 12/18/15 Ascorbic Acid [Vitamin C] 2,000 mg PO DAILY #30 tablet.er 07/14/20 Cholecalciferol (Vitamin D3) [Vitamin D3 1000 Unit Tablet] 2,000 unit PO DAILY 10 Days #20 tablet 07/14/20 RX: Albuterol Sulfate [Proair Respiclick] 2 inh IH Q6HP PRN #1 inhaler 07/14/20 RX: Magnesium Oxide [Mag-Ox 400 mg Tablet] 400 mg PO DAILY #10 tablet 07/14/20 RX: Zinc Sulfate [Zinc-220 Capsule] 220 mg PO DAILY #20 capsule 07/14/20 History of Present Illiness History of Present Illness: According to admitting provider: MAGALI YOUNGBLOOD JR is a 64 year old male who presented emergency room with a 2- week history of dyspnea. He admits the gradual onset and gradual worsening of dyspnea over the last 2 weeks, becoming severe over the last 24 hours. His dyspnea is present constantly and is worsened by exertion. His dyspnea has been accompanied by general malaise, fatigue and a nonproductive cough. His dyspnea has been associated with subjective fevers for the last few days and intermittent nausea. He denies other associated or accompanying signs and symptoms. He denies prior similar episodes. He admits having gone for a drive- through Covid test but he has not obtained results. He has not identified any additional aggravating or ameliorating factors for his dyspnea. In the emergency room he was found to have an acute kidney injury with a normal lactic acid and a probable left sided pneumonia on chest x-ray. He was transiently hypotensive and tachycardic but improved with IV fluids. He required supplemental oxygen at 2 L/min via nasal cannula to maintain an adequate oxygen saturation. He was subsequently admitted to the hospital for further evaluation and treatment as a person under investigation for COVID-19. Hospital Course Hospital Course: Patient was admitted to the hospital for treatment of hypoxia and pneumonia. Initial blood work revealed hyperkalemia of 5.2 and elevated creatinine consistent with BEATRIZ as well as non-anion gap metabolic acidosis with bicarbonate level of 10. These findings were secondary to volume depletion from excessive diarrhea leading to acute kidney injury. Chest x-ray showed findings concerning for possible pneumonia. D-dimer was also elevated at 1.27. Patient was started on treatment with antibiotics as well as dexamethasone and was tested for COVID- 19. CTA of the chest was obtained which was negative for pulmonary embolism but showed findings consistent with viral pneumonia. Patient was also treated with vitamin supplements as well as zinc. He was given IV fluids which led to resolution of his BEATRIZ. His stool was also tested for C. difficile which was negative. His COVID-19 test came back positive and he was started on remdesivir and convalescent plasma. His hypoxia resolved and patient was transitioned to room air. He maintained being on room air for 2 days with adequate oxygen saturation and this morning, patient maintained pulse ox at 97% on ambulation on room air. At this point he is ready for discharge. His diarrhea seems to be resolving at this point and a whole lot less frequent did not even have an episode in the past 24 hours. He still has some hypomagnesemia so he will be sent on magnesium supplements. He did have a renal ultrasound which showed the cyst in his left kidney and he will be following up with his primary care doctor for monitoring of this. He has received 3 doses of his remdesivir but does not require any further doses of this and any further steroids at this point. He is being discharged in stable conditions and glad to go home. He has been instructed to remain on isolation for the next 14 days. Physical Exam Vital Signs: Temp Pulse Resp BP Pulse Ox 98.1 F 90 19 132/78 H 91 L 07/14/20 09:00 07/14/20 07:29 07/14/20 07:29 07/14/20 07:29 07/14/20 07:29 Intake & Output 07/13/20 07/14/20 07/15/20 06:59 06:59 06:59 Intake Total 2459 2838 Output Total 0 Balance 2459 2838 Weight 87 kg 86 kg General appearance: PRESENT: no acute distress, cooperative Neck exam: ABSENT: JVD Respiratory exam: PRESENT: rales - Mild basilar, symmetrical, unlabored. ABSENT: tachypnea, wheezes Cardiovascular exam: PRESENT: RRR, +S1, +S2. ABSENT: tachycardia Musculoskeletal exam: PRESENT: ambulatory Neurological exam: PRESENT: alert, awake, oriented to person, oriented to place, oriented to time, oriented to situation Psychiatric exam: ABSENT: agitated, anxious Results Laboratory Results: WBC 5.3 10^3/uL (4.0-10.5) 07/14/20 05:04 RBC 3.73 10^6/uL (4.35-5.55) L 07/14/20 05:04 Hgb 11.1 g/dL (13.5-17.0) L 07/14/20 05:04 Hct 31.8 % (37.9-51.0) L 07/14/20 05:04 MCV 85 fl (80-97) 07/14/20 05:04 MCH 29.8 pg (27.0-33.4) 07/14/20 05:04 MCHC 34.9 g/dL (32.0-36.0) 07/14/20 05:04 RDW 13.5 % (11.5-14.0) 07/14/20 05:04 Plt Count 355 10^3/uL (150-450) 07/14/20 05:04 Lymph % (Auto) 14.7 % (13-45) 07/11/20 04:29 [place] % (Auto) 8.1 % (3-13) 07/11/20 04:29 Eos % (Auto) 0.3 % (0-6) 07/11/20 04:29 Baso % (Auto) 0.5 % (0-2) 07/11/20 04:29 Absolute Neuts (auto) 4.0 10^3/uL (1.7-8.2) 07/11/20 04:29 Absolute Lymphs (auto) 0.8 10^3/uL (0.5-4.7) 07/11/20 04:29 Absolute Monos (auto) 0.4 10^3/uL (0.1-1.4) 07/11/20 04:29 Absolute Eos (auto) 0.0 10^3/uL (0.0-0.6) 07/11/20 04:29 Absolute Basos (auto) 0.0 10^3/uL (0.0-0.2) 07/11/20 04:29 Seg Neutrophils % 76.4 % (42-78) 07/11/20 04:29 PT 14.2 SEC (11.4-15.4) 07/09/20 20:10 INR 1.08 07/09/20 20:10 D-Dimer 0.96 ug/mL (0.00-0.50) H 07/13/20 04:53 VBG pH 7.34 (7.30-7.42) 07/09/20 21:00 VBG pCO2 26.7 mmHg (35-63) L 07/09/20 21:00 VBG HCO3 14.0 mmol/L (20-32) L 07/09/20 21:00 VBG Base Excess -10.5 mmol/L 07/09/20 21:00 Sodium 139.0 mmol/L (137-145) 07/14/20 05:04 Potassium 4.4 mmol/L (3.6-5.0) 07/14/20 05:04 Chloride 110 mmol/L (98-107) H 07/14/20 05:04 Carbon Dioxide 17 mmol/L (22-30) L 07/14/20 05:04 Anion Gap 12 (5-19) 07/14/20 05:04 BUN 33 mg/dL (7-20) H 07/14/20 05:04 Creatinine 1.11 mg/dL (0.52-1.25) 07/14/20 05:04 Est GFR ( Amer) > 60 (>60) 07/14/20 05:04 Est GFR (MDRD) Non-Af > 60 (>60) 07/14/20 05:04 Glucose 149 mg/dL (75-110) H 07/14/20 05:04 POC Glucose 146 mg/dL (70-110) H 07/14/20 07:29 Lactic Acid 1.0 mmol/L (0.7-2.1) 07/09/20 21:00 Calcium 9.0 mg/dL (8.4-10.2) 07/14/20 05:04 Phosphorus 3.4 mg/dL (2.5-4.5) 07/13/20 04:53 Magnesium 1.4 mg/dL (1.6-2.3) L 07/14/20 05:04 Total Bilirubin 0.4 mg/dL (0.2-1.3) 07/11/20 04:29 Direct Bilirubin 0.3 mg/dL (0.0-0.4) 07/11/20 04:29 Neonat Total Bilirubin Not Reportable 07/11/20 04:29 Neonat Direct Bilirubin Not Reportable 07/11/20 04:29 Neonat Indirect Bili Not Reportable 07/11/20 04:29 AST 37 U/L (17-59) 07/11/20 04:29 ALT 23 U/L (<50) 07/11/20 04:29 Alkaline Phosphatase 47 U/L (38-126) 07/11/20 04:29 Lactate Dehydrogenase 202 U/L (120-246) 07/09/20 20:10 Creatine Kinase 50 U/L (55-170) L 07/09/20 19:02 C-Reactive Protein 85.7 mg/L (<10.0) H 07/09/20 20:10 Total Protein 5.8 g/dL (6.3-8.2) L 07/11/20 04:29 Albumin 3.2 g/dL (3.5-5.0) L 07/11/20 04:29 Urine Color YELLOW 07/12/20 11:55 Urine Appearance CLEAR 07/12/20 11:55 Urine pH 5.0 (5.0-9.0) 07/12/20 11:55 Ur Specific [place] 1.016 07/12/20 11:55 Urine Protein NEGATIVE mg/dL (NEGATIVE) 07/12/20 11:55 Urine Glucose (UA) >=500 mg/dL (NEGATIVE) H 07/12/20 11:55 Urine Ketones NEGATIVE mg/dL (NEGATIVE) 07/12/20 11:55 Urine Blood NEGATIVE (NEGATIVE) 07/12/20 11:55 Urine Nitrite NEGATIVE (NEGATIVE) 07/12/20 11:55 Urine Bilirubin NEGATIVE (NEGATIVE) 07/12/20 11:55 Urine Urobilinogen NEGATIVE mg/dL (<2.0) 07/12/20 11:55 Ur Leukocyte Esterase NEGATIVE (NEGATIVE) 07/12/20 11:55 Urine WBC (Auto) 1 /HPF 07/12/20 11:55 Urine RBC (Auto) 0 /HPF 07/12/20 11:55 Squamous Epi Cells Auto <1 /HPF 07/09/20 21:13 Urine Mucus (Auto) RARE /LPF 07/12/20 11:55 Urine Creatinine 65.0 mg/dL (22-328) 07/10/20 11:25 Urine Sodium 108 mmol/L (30-90) H 07/10/20 11:25 Urine Ascorbic Acid 20 (NEGATIVE) H 07/12/20 11:55 Stl C. Difficile GDH Ag POSITIVE (NEGATIVE) 07/12/20 07:46 Stl C.difficile Tox A&B NEGATIVE (NEGATIVE) 07/12/20 07:46 Stl C.difficile Tox PCR NEGATIVE (NEGATIVE) 07/12/20 07:46 COVID-19 Source See comment 07/09/20 21:00 COVID-19 ([facility]) DETECTED (Not Detect) A 07/09/20 21:00 Influenza A (Rapid) NEGATIVE (NEGATIVE) 07/09/20 20:10 Influenza B (Rapid) NEGATIVE (NEGATIVE) 07/09/20 20:10 Group A Strep Rapid NEGATIVE (NEGATIVE) 07/09/20 20:10 Blood Type O POSITIVE 07/12/20 11:50 Antibody Screen NEGATIVE 07/12/20 11:50 Impressions: Chest X-Ray 07/09/20 19:04 IMPRESSION: Peripheral ill-defined opacity in the left mid lung may represent infectious/ inflammatory process. Underlying pulmonary nodule is not excluded. Further evaluation with contrast-enhanced CT of the chest is recommended. Renal Ultrasound 07/10/20 00:00 IMPRESSION: 1. Minimal fullness of the right renal pelvis without caliceal dil ation, likely secondary to extrarenal pelvis. 2. 4.8 cm left renal cyst. Chest/Abdomen CTA 07/11/20 00:00 IMPRESSION: There are peripheral groundglass airspace opacities concerning for COVID infection.. No filling defect is seen to suggest a pulmonary artery embolism. The ascending aorta is enlarged. The main pulmonary artery is enlarged, which can be seen with pulmonary artery hypertension. Plan Time Spent: Greater than 30 Minutes Stroke Is this a Stroke Patient?: No Acute Heart Failure Is this a Heart Failure Patient?: No
[2020-07-14 11:49] VITALS: BP 135/74
== END 2020-07-14 12:20 | disposition home or self-care (01) | DRG 177 ==
LOC: ER 18:59 → EH 07-10 00:18 → 3N 07-10 01:25
PROVIDERS: ADMIT Emergency Medicine; ATTEND Internal Medicine
PROC: XW033E5 Introduction of Remdesivir Anti-infective into Peripheral Vein, Percutaneous Approach, New Technology Group 5 (ICD-10-PCS; principal; 2020-07-12)
PROC: XW13325 Transfusion of Convalescent Plasma (Nonautologous) into Peripheral Vein, Percutaneous Approach, New Technology Group 5 (ICD-10-PCS; 2020-07-13)
PROC: 3E02340 Introduction of Influenza Vaccine into Muscle, Percutaneous Approach (ICD-10-PCS; 2020-07-14)
DX: U07.1 COVID-19 (principal); J12.89 Other viral pneumonia; J96.01 Acute respiratory failure with hypoxia; N17.9 Acute kidney failure, unspecified; E87.2 Acidosis; A09 Infectious gastroenteritis and colitis, unspecified; K22.70 Barrett's esophagus without dysplasia; E78.5 Hyperlipidemia, unspecified; I10 Essential (primary) hypertension; E87.5 Hyperkalemia; R79.1 Abnormal coagulation profile; I25.10 Atherosclerotic heart disease of native coronary artery without angina pectoris; E11.9 Type 2 diabetes mellitus without complications; K21.9 Gastro-esophageal reflux disease without esophagitis; Z85.828 Personal history of other malignant neoplasm of skin; Z87.891 Personal history of nicotine dependence; Z88.0 Allergy status to penicillin; N28.1 Cyst of kidney, acquired; E86.0 Dehydration; Z23 Encounter for immunization; Z79.84 Long term (current) use of oral hypoglycemic drugs
CPT/HCPCS: 36415; 36430; 71045; 71275; 76770; 80048; 80053; 81001; 82550; 82570; 82803; 82962; 83605; 83615; 83735; 84100; 84300; 85025; 85027; 85379; 85610; 86140; 86850; 86900; 86901; 87040; 87070; 87324; 87449; 87493; 87635; 87804; 87880; 90471; 90686; 93005; 93010; 96361; 96374; 99285; C9803; G0008; J0456; J0692; J0696; J1100; J1644; J1650; J1815; J2405; J3475; J3490; J7030; J7050; J7060; J7120